=== PATIENT | male | born 1990 | race Caucasian/White ===

== ENCOUNTER 2018-12-02 11:28 | Emergency (ER) | payer MEDICAID ==
[~2018-12-02] VITALS: Ht 175.3 cm; Wt 189.8 kg
[~2018-12-02 11:28] MED LIST: CLINDAMYCIN HC300 MG PO; COL100 PO; KEFLEX250 MG; KEFLEX500 MG PO; LAC PO; NORCO1 TA2 PO
[2018-12-02 11:49] VITALS: BP 186/110; Ht 175.3 cm; Wt 189.8 kg
== END 2018-12-02 15:31 | disposition home or self-care (01) ==
LOC: ED 11:28
DX: N45.1 Epididymitis (principal); S39.011A Strain of muscle, fascia and tendon of abdomen, initial encounter; R03.0 Elevated blood-pressure reading, without diagnosis of hypertension; E66.01 Morbid (severe) obesity due to excess calories; J45.909 Unspecified asthma, uncomplicated; X58.XXXA Exposure to other specified factors, initial encounter; Y93.89 Activity, other specified; Y92.89 Other specified places as the place of occurrence of the external cause; Y99.8 Other external cause status
CPT/HCPCS: J1885; Q0092